=== PATIENT | male | born 1970 | race Caucasian/White ===

== ENCOUNTER 2018-02-18 20:36 | Emergency (ER) | payer MEDICARE, MEDICAID ==
[~2018-02-18] VITALS: Ht 182.9 cm; Wt 120.2 kg
[2018-02-18 21:55] LABS: BASOPHIL % 0.6 % (0-2); PLATELET COUNT 132 x10^3mcL (130-400); RED CELL DISTRIBUTION WIDTH 13.8 % (11.5-14.5)
[2018-02-18 22:03] LABS: CALCIUM 8.2 mg/dL (8.5-10.1); CARBON DIOXIDE 28.8 mmol/L (21-32); CHLORIDE SERUM 104 mmol/L (98-107); CREATININE SERUM 0.8 mg/dL (0.7-1.3); GFR1 > 60 mL/min; GLUCOSE SERUM 95 mg/dL (74-106); SODIUM SERUM 138 mmol/L (136-145)
[2018-02-18 22:06] LABS: ALKALINE PHOSPHATASE 70 U/L (46-116); ALT/SGPT 68 U/L (16-63); AST/SGOT 62 U/L (15-37); BILIRUBIN TOTAL 0.7 mg/dL (0.20-1.00); LIPASE 153 IU/L (73-393); TOTAL PROTEIN, SERUM 7.7 g/dL (6.4-8.2)
[2018-02-18 22:07] LABS: ALBUMIN 3.3 g/dL (3.4-5.0)
[2018-02-18 22:31] LABS: AMPHETAMINE QUAL UR NONE DETECTED (See below)
[2018-02-19 00:08] VITALS: BP 161/99
== END 2018-02-19 00:08 | disposition home or self-care (01) ==
LOC: ED 20:36
PROVIDERS: Emergency Medicine
DX: R07.89 Other chest pain (principal); F41.9 Anxiety disorder, unspecified; F20.0 Paranoid schizophrenia
CPT/HCPCS: 36415; G0480